=== PATIENT | female | born 1985 | race American Indian/Alaskan Native ===

== ENCOUNTER 2018-10-18 21:50 | Emergency (ER) | payer MEDICAID, BC ==
[2018-10-18 21:51] VITALS: BMI 48.1
[2018-10-18 22:31] VITALS: RESP 18; TEMP 98.1
[2018-10-18] MEDS ORDERED: Sodium Chloride 0.9% 1,000 ML IV SCH (23:45)
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
[2018-10-19 00:30] LABS: ALB/GLOB RATIO 1.2 (1.1-1.8); ALBUMIN 3.9 g/dL (3.0-4.8); ALT/SGPT 16 U/L (7-56); AST/SGOT 22 U/L (14-36); BLOOD UREA NITROGEN 14 mg/dL (7-21); CALCIUM 8.3 mg/dL (8.4-10.5); GFR NON-AFRICAN AMERICAN > 60
[2018-10-19 00:36] LABS: URINE APPEARANCE CLEAR (CLEAR); URINE BILIRUBIN NEGATIVE (NEGATIVE); URINE BLOOD NEGATIVE (NEGATIVE); URINE COLOR STRAW (YELLOW); URINE GLUCOSE (UA) NEGATIVE (NEGATIVE); URINE LEUKOCYTE ESTERASE NEGATIVE Leu/uL (NEGATIVE); URINE PROTEIN NEGATIVE mg/dL (<30 mg/dL); URINE UROBILINOGEN 0.2 E.U./dL (<1 E.U./dL)
[2018-10-19 00:38] LABS: BASO # 0.01 K/mm3 (0.0-2.0); BASO % 0.1 % (0.0-3.0); EOS # 0.2 (0.0-0.7); EOS % 2.2 % (1.5-5.0); HEMOGLOBIN 11.8 g/dL (12.0-16.0); LYMPH # 3.3 (1.2-3.4); LYMPH % 49.2 % (22.0-35.0); MEAN CELL VOLUME 93.6 fl (80.0-105.0); MEAN CORPUSCULAR HGB CONC 32.1 g/dl (31.0-37.0); MEAN PLATELET VOLUME 9.6 fl (7.0-11.0); MONO # 0.4 (0.1-0.6); MONO % 6.4 % (1.0-6.0); RBC 3.93 10^6/uL (3.5-6.1); RED CELL DISTRIBUTION WIDTH 13.5 % (11.5-14.5); WHITE BLOOD COUNT 6.7 10^3/uL (4.5-11.0)
[2018-10-19 03:28] VITALS: BP 110/60; PULSE 68; O2SAT 99
--- NOTE | 2018-10-19 22:51 | CARD ---
APPROVED REPORT Date of service: 10/19/2018 EKG Measurement Heart [id number] <Conclusion> Normal sinus rhythm Normal Electrocardiogram
== END 2018-10-19 03:25 | disposition home or self-care (01) ==
LOC: ED 21:50
DX: J10.1 Influenza due to other identified influenza virus with other respiratory manifestations (principal); E03.9 Hypothyroidism, unspecified; Z87.891 Personal history of nicotine dependence
CPT/HCPCS: 80053; 81003; 81025; 83735; 84100; 84703; 85025; 87070; 87430; 87804; 93005; 99285; J7030

== ENCOUNTER 2018-12-02 14:30 | Outpatient (CLI) | payer BC | END 2018-12-02 14:31 | disposition home or self-care (01) | LOC: RAD 14:30 | DX: N91.2 Amenorrhea, unspecified (principal) ==

== ENCOUNTER 2018-12-16 22:29 | Emergency (ER) | payer BC ==
[2018-12-16 22:36] VITALS: BMI 31.6
[2018-12-16 22:54] VITALS: TEMP 98.3; O2SAT 99
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
[2018-12-16 23:30] LABS: ALB/GLOB RATIO 1.2 (1.1-1.8); ALT/SGPT 10 U/L (7-56); AST/SGOT 25 U/L (14-36); BLOOD UREA NITROGEN 14 mg/dL (7-21); CALCIUM 8.3 mg/dL (8.4-10.5); GFR NON-AFRICAN AMERICAN > 60
[2018-12-16 23:32] LABS: BASO # 0.02 K/mm3 (0.0-2.0); BASO % 0.3 % (0.0-3.0); EOS # 0.1 (0.0-0.7); EOS % 1.8 % (1.5-5.0); HEMOGLOBIN 12.9 g/dL (12.0-16.0); MEAN CELL VOLUME 92.7 fl (80.0-105.0); MEAN CORPUSCULAR HEMOGLOBIN 30.6 pg (25.0-35.0); MEAN PLATELET VOLUME 9.6 fl (7.0-11.0); MONO # 0.4 (0.1-0.6); MONO % 6.5 % (1.0-6.0); RBC 4.22 10^6/uL (3.5-6.1); RED CELL DISTRIBUTION WIDTH 12.9 % (11.5-14.5); WHITE BLOOD COUNT 6.8 10^3/uL (4.5-11.0)
[2018-12-16 23:35] LABS: INR 1.08; PARTIAL THROMBOPLASTIN TIME 28.1 Seconds (26.9-38.3)
[2018-12-16 23:41] LABS: TROPONIN I < 0.01 ng/mL
[2018-12-16 23:49] LABS: CK-MB 0.8 ng/mL (0.0-3.6)
[2018-12-17 00:03] LABS: URINE BILIRUBIN NEGATIVE (NEGATIVE); URINE BLOOD NEGATIVE (NEGATIVE); URINE GLUCOSE (UA) NEGATIVE (NEGATIVE); URINE LEUKOCYTE ESTERASE NEGATIVE Leu/uL (NEGATIVE); URINE PROTEIN NEGATIVE mg/dL (<30 mg/dL); URINE UROBILINOGEN 0.2 E.U./dL (<1 E.U./dL)
[2018-12-17 00:05] LABS: URINE APPEARANCE CLEAR (CLEAR); URINE COLOR YELLOW (YELLOW)
[2018-12-17 00:37] LABS: BARBITURATES, UR NEGATIVE (NEGATIVE); BENZODIAZEPINES, UR POSITIVE (NEGATIVE); OPIATES, UR NEGATIVE (NEGATIVE); PHENCYCLIDINE, UR POSITIVE (NEGATIVE)
[2018-12-17 00:38] VITALS: BP 106/60; PULSE 66; RESP 16
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
--- NOTE | 2018-12-17 23:59 | CARD ---
APPROVED REPORT Date of service: 12/16/2018 EKG Measurement Heart [id number] <Conclusion> Normal sinus rhythm Normal ECG
== END 2018-12-17 01:03 | disposition home or self-care (01) ==
LOC: ED 22:29
DX: R07.9 Chest pain, unspecified (principal); Z87.891 Personal history of nicotine dependence; E03.9 Hypothyroidism, unspecified
CPT/HCPCS: 71046; 80053; 81003; 81025; 82550; 82553; 83615; 83735; 84484; 85025; 85610; 85730; 93005; 99283; G0480

== ENCOUNTER 2019-01-30 09:27 | Emergency (ER) | payer OTHER, BC ==
[2019-01-30 09:50] VITALS: TEMP 99.3; BMI 32.5
[2019-01-30] MEDS ORDERED: TDAP Vaccine 0.5 mL Syr IM ONE (10:04)
[2019-01-30] MEDS ORDERED: Lidocaine 5% Patch TD STA (10:06)
[2019-01-30] MEDS ORDERED: Bacitracin 500 Units/gm Oint Foilpak UD TOP ONE (10:36)
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
[2019-01-30 11:47] VITALS: BP 119/76; PULSE 70; RESP 16; O2SAT 100
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
== END 2019-01-30 12:10 | disposition home or self-care (01) ==
LOC: ED 09:27
DX: S00.81XA Abrasion of other part of head, initial encounter (principal); S09.90XA Unspecified injury of head, initial encounter; V49.9XXA Car occupant (driver) (passenger) injured in unspecified traffic accident, initial encounter; E03.9 Hypothyroidism, unspecified; Z23 Encounter for immunization